=== PATIENT | female | born 1995 | race African-American/Black ===

== ENCOUNTER 2021-03-04 01:57 | Emergency (ER) | payer OTHER, SELFPAY ==
[2021-03-04 01:58] VITALS: BP 149/88; PULSE 82; RESP 16; TEMP 36.7; O2SAT 98
--- NOTE | 2021-03-04 02:22 | ED.WOUNDLAC ---
HPI - Wound/Laceration General Chief Complaint: Wound/Laceration Stated Complaint: need to have an incision checked Source: patient Mode of arrival: EMS Limitations: no limitations History of Present Illness HPI narrative: THis is a 26 year old female who presents for evaluation of a wound check of her csection incision. She had a c section 2-3 weeks ago at [facility]. She states her boyfriend noticed that she has an odor coming from her incision over the past few days. He also told her she had drainage and her incision appeared to be open. She also reports left lower abdominal pain at incision site. She denies nausea, vomiting or fever. She had a video appointment with her OBGYN at 2 week appointment and she was told everything was fine. Related Data Allergies Allergy/AdvReac Type Severity Reaction Status Date / Time No Known Allergies Allergy Verified 03/04/21 02:04 Review of Systems Review of Systems: All systems reviewed & are unremarkable except as noted in HPI and below PMFSH Past Medical History Medical History (Updated 03/04/21 @ 04:36 by Kasia Gallo MD) Patient denies medical problems Surgical History Surgical History (Updated 03/04/21 @ 02:26 by Kasia Gallo MD) H/O section Social History Social History (Updated 03/04/21 @ 02:26 by Kasia Gallo MD) Smoking status: Never smoker Exam Const: General: no acute distress and alert Orientation/consciousness: patient oriented x3 Eyes: EOM: EOMs intact bilaterally Chest: Chest palpation & inspection: normal inspection of the chest Resp: Effort & Inspection: normal respiratory effort and no retractions Auscultation: clear to auscultation bilaterally Cardio: Rate: regular rate Rhythm: regular rhythm Heart sounds: no murmurs GI: GI Palp: Yes Soft to palpation, Yes Tenderness to palpation present (GI) and No Guarding due to palpation present (GI) Auscultation: normal bowel sounds Skin: Other: low transverse incision appears intact with no drainage. mild erythema to right side with TTP left side, it is malodorous, patient with large pannus. no necrosis, no fluctuance Neuro: General: patient oriented x3 and moves all extremities Course Reevaluation(s) Reevaluation #1: I discussed with patient labs show anemia but otherwise unremarkable. She states she is taking iron supplementation. She is no symptomatic. Patient's incision does not have any fluctuance or drainage. I performed bedside ultrasound and no fluid collection seen to suggest abscess It is not particularly red. She does have an odor likely due moist location and poor cleansing. Will start on antibiotics as she has tenderness. She will follow up with her OBGYN Date: 03/04/21 Time: 04:31 Vital Signs Vital signs: Vital Signs Temperature 98.1 F 03/04/21 01:58 Pulse Rate 82 03/04/21 01:58 Respiratory Rate 16 03/04/21 01:58 Blood Pressure 149/88 H 03/04/21 01:58 Pulse Oximetry 98 03/04/21 01:58 Temperature 98.1 F 03/04/21 01:58 Pulse Rate 82 03/04/21 01:58 Respiratory Rate 16 03/04/21 01:58 Blood Pressure 149/88 H 03/04/21 01:58 Pulse Oximetry 98 03/04/21 01:58 MDM - Wound/Laceration Lab Data Attestation: I reviewed the patient's lab results. Result diagrams: 03/04/21 02:15 03/04/21 02:15 Labs: Lab Results 03/04/21 03/04/21 Range/Units 02:15 02:15 WBC 7.0 (4.5-10.0) K/mm3 RBC 4.64 (4.2-5.4) M/mm3 Hgb 8.5 L (12.0-15.0) g/dL Hct 29.8 L (37.0-47.0) % MCV 64.2 L (80-100) fl MCH 18.3 L (26-34) pg MCHC 28.5 L (32-36) g/dl RDW 21.3 H (11.5-14.5) % Plt Count 374 (150-375) k/mm3 MPV 9.9 (7.4-10.4) fl Immature Gran % (Auto) 0.3 (0-0.5) % Neut % (Auto) 54.3 (45.5-73.1) % Lymph % (Auto) 27.5 (18.3-44.2) % [place] % (Auto) 12.0 H (2.6-8.5) % Eos % (Auto) 5.6 H (0-4.4) % Baso % (Auto) 0.3 (0.2-1.2) % Lymph # (Auto) 1
[2021-03-04 02:26] LABS: Basophils Percent Auto 0.3 % (0.2-1.2); Eosinophils Absolute Auto 0.4 K/mm3 (0-0.3); Eosinophils Percent Auto 5.6 % (0-4.4); Hematocrit 29.8 % (37.0-47.0); Hemoglobin 8.5 g/dL (12.0-15.0); Immature Granulocyte Absolute 0.02 K/mm3 (0.00-0.031); Immature Granulocyte Percent A 0.3 % (0-0.5); Immature Platelet Fraction Pct 3.3 % (0.9-11.2); Lymphocytes Absolute Auto 1.93 K/mm3 (0.9-3.2); Lymphocytes Percent Auto 27.5 % (18.3-44.2); Mean Corpuscular HGB Conc 28.5 g/dl (32-36); Mean Corpuscular Hemoglobin 18.3 pg (26-34); Mean Corpuscular Volume 64.2 fl (80-100); Mean Platelet Volume 9.9 fl (7.4-10.4); Monocytes Absolute Auto 0.8 K/mm3 (0.1-0.6); Neutrophils Absolute Auto 3.8 K/mm3 (1.3-6.7); Neutrophils Percent Auto 54.3 % (45.5-73.1); Platelet Count Result 374 k/mm3 (150-375); Red Blood Count 4.64 M/mm3 (4.2-5.4); Red Cell Distribution Width 21.3 % (11.5-14.5)
[2021-03-04 02:36] LABS: Alanine Aminotransferase 15 U/L (4-35); Albumin Level 3.3 g/dL (3.5-5.1); Alkaline Phosphatase 95 U/L (38-126); Anion Gap 7 mmol/L (8-16); Aspartate Amino Transferase 21 U/L (14-36); Bilirubin,Total < 0.1 mg/dL (0.2-1.3); Blood Urea Nitrogen 14 mg/dL (7-17); CRP 1.4 mg/dL (<1.0); Calcium 8.1 mg/dL (8.4-10.2); Carbon Dioxide 25 mmol/L (22-30); Chloride 110 mmol/L (98-107); Estimated CRCL calculation 100 ml/min; Estimated Glomerular Filt Rate > 60; Glucose 95 mg/dL (65-105); Potassium 3.5 mmol/L (3.4-5.0); Sodium 142 mmol/L (137-145)
== END 2021-03-04 04:56 | disposition home or self-care (01) ==
PROVIDERS: Emergency Provider General Practice; PCP Obstetrics & Gynecology
DX: O86.01 Infection of obstetric surgical wound, superficial incisional site (principal)
CPT/HCPCS: 36415; 80053; 85025; 85055; 86140; 99283

== ENCOUNTER 2021-12-05 02:42 | Emergency (ER) | payer OTHER, SELFPAY ==
[2021-12-05 02:43] VITALS: BP 124/88; PULSE 84; RESP 20; TEMP 36.6; O2SAT 98
[2021-12-05] MEDS: SODIUM CHLORIDE 0.9% IV 1,000 ML 999 ML IV CONT (03:39)
[2021-12-05 03:45] LABS: Basophils Percent Auto 0.2 % (0.2-1.2); Eosinophils Absolute Auto 0.1 K/mm3 (0-0.3); Eosinophils Percent Auto 1.3 % (0-4.4); Hematocrit 32.9 % (37.0-47.0); Hemoglobin 10.3 g/dL (12.0-15.0); Immature Granulocyte Absolute 0.04 K/mm3 (0.00-0.031); Immature Granulocyte Percent A 0.4 % (0-0.5); Lymphocytes Absolute Auto 2.27 K/mm3 (0.9-3.2); Lymphocytes Percent Auto 22.1 % (18.3-44.2); Mean Corpuscular HGB Conc 31.3 g/dl (32-36); Mean Corpuscular Hemoglobin 21.3 pg (26-34); Monocytes Percent Auto 9.5 % (2.6-8.5); Neutrophils Absolute Auto 6.8 K/mm3 (1.3-6.7); Neutrophils Percent Auto 66.5 % (45.5-73.1); Platelet Count Result 330 k/mm3 (150-375); Red Blood Count 4.84 M/mm3 (4.2-5.4); Red Cell Distribution Width 18.1 % (11.5-14.5); White Blood Count 10.3 K/mm3 (4.5-10.0)
--- NOTE | 2021-12-05 03:46 | ED.GENADULT ---
HPI - General Adult General Chief complaint: Vaginal Bleeding Stated complaint: urinary s/sx, vag bleeding in Time Seen by Provider: 12/05/21 02:59 History of Present Illness HPI narrative: Patient is a 26-year-old female that presents the emergency department with chief complaint of vaginal spotting. The patient reports that she is approximate 11 weeks on her seventh . The patient reports that she has had a ultrasound performed at a local clinic earlier this month that confirmed that she had a intrauterine the patient states she is unsure of her blood type reports this evening she had a sensation as though she needed to push and then went to the bathroom urinated and then had some slight amount of blood whenever she wiped. The patient reports that she has had no clots that have passed reports that she has not had enough bleeding to saturate or require a pad Related Data Allergies Allergy/AdvReac Type Severity Reaction Status Date / Time No Known Allergies Allergy Verified 03/04/21 02:04 Review of Systems Review of Systems: A 10 system review of systems was completed on the patient and is negative except for what is stated in the HPI. Nursing and ancillary documentation was reviewed. PMFSH Past Medical History Medical History Patient denies medical problems Surgical History Surgical History H/O section Social History Social History Smoking status: Never smoker Exam Narrative: GENERAL: Well-appearing, well-nourished, and in no acute distress. HEAD: Normocephalic, atraumatic. EYES: PERRLA and EOMI. ENT: Nares clear, no rhinorrhea or epistaxis. Mucous membranes moist. NECK: Supple. CHEST: Clear to auscultation. No respiratory distress. HEART: Regular rate and rhythm. No murmur heard. Normal peripheral pulses. ABDOMEN: Soft, nontender, nondistended, normal active bowel sounds. EXTREMITIES: Normal range of motion. No edema. SKIN: Warm, dry, no rash. NEURO: No focal deficits. Alert and oriented x3. PSYCH: Normal mood and affect. Course Vital Signs Vital signs: Vital Signs Temperature 36.6 C 12/05/21 02:43 Pulse Rate 84 12/05/21 02:43 Respiratory Rate 20 12/05/21 02:43 Blood Pressure 124/88 12/05/21 02:43 Pulse Oximetry 98 12/05/21 02:43 Temperature 36.6 C 12/05/21 02:43 Pulse Rate 84 12/05/21 02:43 Respiratory Rate 20 12/05/21 02:43 Blood Pressure 124/88 12/05/21 02:43 Pulse Oximetry 98 12/05/21 02:43 Procedures Other Procedure Procedure 1: Other Procedure: Bedside transabdominal ultrasound confirmed intrauterine with positive cardiac activity. Medical Decision Making Vital Signs Vital Signs: Vital Signs Temperature 36.6 C 12/05/21 02:43 Pulse Rate 84 12/05/21 02:43 Respiratory Rate 20 12/05/21 02:43 Blood Pressure 124/88 12/05/21 02:43 Pulse Oximetry 98 12/05/21 02:43 Temperature 36.6 C 12/05/21 02:43 Pulse Rate 84 12/05/21 02:43 Respiratory Rate 20 12/05/21 02:43 Blood Pressure 124/88 12/05/21 02:43 Pulse Oximetry 98 12/05/21 02:43 Lab Data Result diagrams: 12/05/21 03:35 12/05/21 03:35 Labs: Lab Results 12/05/21 12/05/21 Range/Units 03:35 03:35 WBC Pending RBC Pending Hgb Pending Hct Pending MCV Pending MCH Pending MCHC Pending RDW Pending Plt Count Pending MPV Pending Immature Gran % (Auto) Pending Neut % (Auto) Pending Lymph % (Auto) Pending [place] % (Auto) Pending Eos % (Auto) Pending Baso % (Auto) Pending Lymph # (Auto) Pending [place] # (Auto) Pending Eos # (Auto) Pending Baso # (Auto) Pending Abs Immat Gran (auto) Pending Absolute
[2021-12-05 04:01] LABS: Alanine Aminotransferase 13 U/L (4-35); Albumin Level 3.5 g/dL (3.5-5.1); Alkaline Phosphatase 70 U/L (38-126); Anion Gap 7 mmol/L (8-16); Aspartate Amino Transferase 21 U/L (14-36); Bilirubin,Total < 0.1 mg/dL (0.2-1.3); Blood Urea Nitrogen 8 mg/dL (7-17); Calcium 8.3 mg/dL (8.4-10.2); Carbon Dioxide 21 mmol/L (22-30); Chloride 108 mmol/L (98-107); Estimated CRCL calculation 153 ml/min; Estimated Glomerular Filt Rate > 60; Glucose 108 mg/dL (65-110); Potassium 3.5 mmol/L (3.4-5.0); Sodium 136 mmol/L (137-145)
[2021-12-05 04:18] LABS: Beta HCG Quantitative > 15000.00 mIU/ML
[2021-12-05 04:38] LABS: Add Urine Microscopic? YES; Appearance Urine Cloudy (Clear); Bilirubin Urine Negative (Negative); Blood Urine 3+ (Negative); Color Urine Yellow (Yellow); Glucose Urine UA Negative (Negative); Ketones Urine Negative (Negative); Leukocyte Esterase Ur 3+ LEU/UL (Negative); Mucus Urine Rare /lpf; Nitrate Urine Negative (Negative); Protein Urine 2+ mg/dL (Negative); RBC Urine >75 /hpf (0-2); Specific Grav Ur 1.023 (1.001-1.035); Squamous Epithelial Cell Urine Occasional /hpf (Few); WBC Urine >75 /hpf
[2021-12-05] MEDS: CEPHALEXIN 500 MG CAPSULE PO (05:19)
== END 2021-12-05 05:31 | disposition home or self-care (01) ==
PROVIDERS: Emergency Provider Emergency Medicine
DX: O20.0 Threatened abortion (principal); Z3A.11 11 weeks gestation of pregnancy
CPT/HCPCS: 36415; 80053; 81001; 84702; 85025; 85461; 87077; 87086; 87088; 87186; 87491; 87591; 96360; 99284; A9270; J7030

== ENCOUNTER 2022-03-26 02:06 | Observation (INO) | payer OTHER, SELFPAY ==
[2022-03-26] VITALS (33 sets, daily range): BP systolic 108–119; BP diastolic 66–73; PULSE 75–108; TEMP 36.1; O2SAT 97–100; BMI 40.1
--- NOTE | ~2022-03-26 | US_ITS ---
US OB limited DATE: 03/26/2022 07:33 INDICATION: Patient fell. Check placenta. TECHNIQUE: Real-time imaging and Doppler analysis COMPARISON: None FINDINGS: Live cabrera intrauterine gestation, fetus in breech presentation, longitudinal lie with heart rate of 131 bpm. Anterior placenta, lower margin 1.2 cm above the internal os. No retroplacental hematoma is noted. Subjectively normal amount of amniotic fluid. IMPRESSION: Breech presentation Anterior placenta; no retroplacental hemorrhage is evident Reviewed, dictated and finalized at [facility]. Reviewed, dictated and finalized at [facility].
--- NOTE | ~2022-03-26 | XR_ITS ---
XR ankle LT min 3V DATE: 03/26/2022 08:16 INDICATION: Patient rolled ankle and fell down stairs yesterday. Lateral pain. TECHNIQUE: 4 views of left ankle COMPARISON: None FINDINGS: No fracture or dislocation of the ankle or disruption of the ankle mortise. No periosteal r eaction or bone destruction. IMPRESSION: Negative Reviewed, dictated and finalized at [facility]. IMPRESSION: Negative
[2022-03-26 03:02] LABS: Basophils Percent Auto 0.2 % (0.2-1.2); Eosinophils Percent Auto 0.3 % (0-4.4); Hematocrit 28.3 % (37.0-47.0); Hemoglobin 8.5 g/dL (12.0-15.0); Immature Granulocyte Absolute 0.04 K/mm3 (0.00-0.031); Immature Granulocyte Percent A 0.4 % (0-0.5); Lymphocytes Absolute Auto 1.69 K/mm3 (0.9-3.2); Lymphocytes Percent Auto 15.2 % (18.3-44.2); Mean Corpuscular Hemoglobin 19.9 pg (26-34); Mean Corpuscular Volume 66.1 fl (80-100); Mean Platelet Volume 9.4 fl (7.4-10.4); Monocytes Absolute Auto 0.9 K/mm3 (0.1-0.6); Monocytes Percent Auto 8.1 % (2.6-8.5); Neutrophils Absolute Auto 8.5 K/mm3 (1.3-6.7); Neutrophils Percent Auto 75.8 % (45.5-73.1); Platelet Count Result 278 k/mm3 (150-375); Red Blood Count 4.28 M/mm3 (4.2-5.4); Red Cell Distribution Width 18.2 % (11.5-14.5); White Blood Count 11.1 K/mm3 (4.5-10.0)
[2022-03-26 03:13] LABS: INR 1.1; Prothrombin Time 13.6 Seconds (11.1-14.7)
[2022-03-26 03:14] LABS: Partial Thromboplastin Time 29.9 SECONDS (22.3-36.8)
--- NOTE | 2022-03-26 03:21 | OBADM ---
This patient, Aidee Huston, admitted to the OB room OB Post 117 for observation. Patient/family oriented to hospital policies and general routines including ID bracelet, bed and alarms, visiting hours, pain management, procedures, bathroom and other care routines, personal items, smoking policy, room service/diet, and visiting hours. Patient/Family are encouraged to report perceived risks to care and to ask questions if they do not understand what they are told or what they should do.
[2022-03-26] MEDS: ACETAMINOPHEN 500 MG TABLET 1000 MG PO (03:33)
[2022-03-26 09:27] LABS: Hematocrit 26.6 % (37.0-47.0); Hemoglobin 8.1 g/dL (12.0-15.0)
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
[2022-03-26 11:32] LABS: Amphetamine Screen Urine Negative (Negative); Barbiturate Screen Urine Negative (Negative); Benzodiazepines Screen Urine Negative (Negative); Cannabinoid Screen Urine Negative (Negative); Cocaine Screen Urine Negative (Negative); Methadone Screen Urine Negative (Negative); Opiate Screen Urine Negative (Negative); Phencyclidine Screen Urine Negative (Negative)
--- NOTE | 2022-04-22 10:44 | P.PNOB_ITS ---
OB - Triage/Final Diagnosis Visit Information Date of evaluation: 03/26/22 Comments/Additional reasons for admission: I have assessed the risk for this patient, Aidee Huston, and determined that she would benefit from observation care. Evaluation Laboratory results: Laboratory Tests 03/26/22 03/26/22 03/26/22 02:55 02:55 02:55 WBC 11.1 H RBC 4.28 Hgb 8.5 L Hct 28.3 L MCV 66.1 L MCH 19.9 L MCHC 30.0 L RDW 18.2 H Plt Count 278 MPV 9.4 Immature Gran % (Auto) 0.4 Neut % (Auto) 75.8 H Lymph % (Auto) 15.2 L [place] % (Auto) 8.1 Eos % (Auto) 0.3 Baso % (Auto) 0.2 Lymph # (Auto) 1.69 [place] # (Auto) 0.9 H Eos # (Auto) 0.0 Baso # (Auto) 0.0 Abs Immat Gran (auto) 0.04 H Absolute Neuts (auto) 8.5 H Absolute Nucleated RBC 0.0 Nucleated RBC % 0.0 PT 13.6 INR 1.1 APTT 29.9 Urine Opiates Screen Urine Methadone Screen Ur Barbiturates Screen Ur Phencyclidine Scrn Ur Amphetamine Screen U Benzodiazepines Scrn Urine Cocaine Screen U Cannabinoids Screen KB Hemoglobin Negative 03/26/22 03/26/22 09:17 10:51 WBC RBC Hgb 8.1 L Hct 26.6 L MCV MCH MCHC RDW Plt Count MPV Immature Gran % (Auto) Neut % (Auto) Lymph % (Auto) [place] % (Auto) Eos % (Auto) Baso % (Auto) Lymph # (Auto) [place] # (Auto) Eos # (Auto) Baso # (Auto) Abs Immat Gran (auto) Absolute Neuts (auto) Absolute Nucleated RBC Nucleated RBC % PT INR APTT Urine Opiates Screen Negative Urine Methadone Screen Negative Ur Barbiturates Screen Negative Ur Phencyclidine Scrn Negative Ur Amphetamine Screen Negative U Benzodiazepines Scrn Negative Urine Cocaine Screen Negative U Cannabinoids Screen Negative KB Hemoglobin Final Diagnosis (1) Status post fall: Code(s): Z91.81 - History of falling Status: Acute
== END 2022-03-26 10:48 | disposition home or self-care (01) ==
PROVIDERS: Admitting Provider Obstetrics & Gynecology; Visit Provider Obstetrics & Gynecology
DX: Z04.3 Encounter for examination and observation following other accident (principal); O26.892 Other specified pregnancy related conditions, second trimester; Z3A.26 26 weeks gestation of pregnancy
CPT/HCPCS: 36415; 73610; 76815; 80307; 85014; 85018; 85025; 85460; 85610; 85730; A9270; G0378; G0379

== ENCOUNTER 2024-07-24 21:41 | Observation (INO) | payer SELFPAY ==
[2024-07-24 22:39] LABS: Add Urine Microscopic? YES; Appearance Urine Cloudy (Clear); Bacteria Urine 4+ /hpf; Bilirubin Urine Negative (Negative); Blood Urine Negative (Negative); Color Urine Dark Yellow (Yellow); Glucose Urine UA Negative (Negative); Ketones Urine 1+ mg/dL (Negative); Leukocyte Esterase Ur 1+ LEU/UL (Negative); Mucus Urine Present /lpf; Need Manual Microscopic Reviewed; Nitrate Urine Negative (Negative); Protein Urine Trace mg/dL (Negative); RBC Urine 0-2 /hpf (0-2); Specific Grav Ur 1.026 (1.001-1.035); Squamous Epithelial Cell Urine Moderate /hpf (Few); pH Urine 6.5 (5.0-9.0)
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
[2024-07-24 22:54] LABS: Amphetamine Screen Urine Negative (Negative); Barbiturate Screen Urine Negative (Negative); Benzodiazepines Screen Urine Negative (Negative); Cannabinoid Screen Urine Negative (Negative); Cocaine Screen Urine Negative (Negative); Methadone Screen Urine Negative (Negative); Opiate Screen Urine Negative (Negative); Phencyclidine Screen Urine Negative (Negative)
[2024-07-24 22:56] VITALS: BMI 38.5
[2024-07-24] MEDS: ACETAMINOPHEN 500 MG TABLET 1000 MG PO (22:57)
--- NOTE | 2024-07-24 23:44 | OBADM ---
This patient, Aidee Huston, admitted to the OB room Labor/Delivery/Recovery 106 for observation. Patient/family oriented to hospital policies and general routines including ID bracelet, bed and alarms, visiting hours, pain management, procedures, bathroom and other care routines, personal items, smoking policy, room service/diet, and visiting hours. Patient/Family are encouraged to report perceived risks to care and to ask questions if they do not understand what they are told or what they should do.
--- NOTE | 2024-07-29 07:57 | P.PNOB_ITS ---
OB - Triage/Final Diagnosis Visit Information Date of evaluation: 07/24/24 Reason for evaluation: other (leakage of fluid) Comments/Additional reasons for admission: I have assessed the risk for this patient, Aidee Huston, and determined that she would benefit from observation care. Evaluation Laboratory results: Laboratory Tests 07/24/24 22:19 Urine Color Dark yellow Urine Appearance Cloudy H Urine pH 6.5 Ur Specific [place] 1.026 Urine Protein Trace Urine Glucose (UA) Negative Urine Ketones 1+ H Ur Blood (Man) Negative Urine Nitrate Negative Urine Bilirubin Negative Urine Urobilinogen 1.0 Add Ur Microanalysis Reviewed Leukocyte Esterase Rfl 1+ H Urine RBC 0-2 Urine WBC 11-20 H Ur Squamous Epith Cells Moderate Urine Bacteria 4+ H Urine Casts 3-5 Urine Mucus Present Urine Opiates Screen Negative Urine Methadone Screen Negative Ur Barbiturates Screen Negative Ur Phencyclidine Scrn Negative Ur Amphetamine Screen Negative U Benzodiazepines Scrn Negative Urine Cocaine Screen Negative U Cannabinoids Screen Negative
== END 2024-07-25 00:48 | disposition home or self-care (01) ==
PROVIDERS: Admitting Provider Student in an Organized Health Care Education/Training Program; Visit Provider Student in an Organized Health Care Education/Training Program
DX: O42.912 Preterm premature rupture of membranes, unspecified as to length of time between rupture and onset of labor, second trimester (principal); Z3A.24 24 weeks gestation of pregnancy
CPT/HCPCS: 80307; 81001; 87086; 87088; A9270; G0378; G0379

== ENCOUNTER 2024-09-05 19:14 | Observation (INO) | payer OTHER, SELFPAY ==
[2024-09-05] VITALS (9 sets, daily range): BP systolic 118; BP diastolic 86; PULSE 90–113; O2SAT 98–100
--- NOTE | 2024-09-05 20:40 | PC.NURSE ---
RN went into room to draw labs. Pt stated she wants to leave AMA so she can picker and packer her kids. RN asked pt if she could stay long enough for labwork to be drawn. Pt stated she could not wait. Charge nurse Uyen Rivas RN notified.
--- NOTE | 2024-09-05 20:45 | PC.NURSE ---
2044- RN contacted quality assurance supervisor trim and relayed pts wishes to leave AMA.
--- NOTE | 2024-09-05 20:45 | PC.NURSE ---
Pt refusing to have labs drawn and requesting to sign out AMA. Discussed at length with patient about necessity for lab work with regards to safety at time of delivery with necessary. Pt states, I have to get my kids. Informed that it will take <5 minutes to draw blood and she doesn't have to wait for results. Pt conts to refuse observation and lab work. Informed pt that she was putting herself and the baby at risk for problems including . Instructed pt to call office of Dr Matthews to schedule follow up appointment and she agrees to do so. She continues to refuse lab work or continued observation and states, I know when to come back. Pt signed AMA form and immediately exited the room.
[2024-09-05 21:00] LABS: Add Urine Microscopic? YES; Appearance Urine Clear (Clear); Bacteria Urine None Seen /hpf; Bilirubin Urine Negative (Negative); Blood Urine Negative (Negative); Color Urine Yellow (Yellow); Glucose Urine UA Negative (Negative); Ketones Urine 1+ mg/dL (Negative); Leukocyte Esterase Ur 1+ LEU/UL (Negative); Nitrate Urine Negative (Negative); Non Pathogenic Casts 0-2; Protein Urine 1+ mg/dL (Negative); RBC Urine 0-2 /hpf (0-2); Specific Grav Ur 1.028 (1.001-1.035); Squamous Epithelial Cell Urine None Seen /hpf (Few); pH Urine 6.5 (5.0-9.0)
[2024-09-05 21:13] LABS: Amphetamine Screen Urine Negative (Negative); Barbiturate Screen Urine Negative (Negative); Benzodiazepines Screen Urine Negative (Negative); Cannabinoid Screen Urine Negative (Negative); Cocaine Screen Urine Negative (Negative); Methadone Screen Urine Negative (Negative); Opiate Screen Urine Negative (Negative); Phencyclidine Screen Urine Negative (Negative)
--- NOTE | 2024-09-05 21:26 | PC.NURSE ---
DCFS notified of pt's presentation to hospital and refusal of care with AMA discharge. Intake # [id number]
--- NOTE | 2024-10-02 07:53 | PM.IMHP ---
H&P: HPI History of Present Illness Date/Time: 10/02/24 07:53 Chief Complaint: loss of fluid Narrative: 29-year-old female who presented to Labor and delivery with /loss of fluid. Membranes were intact. Attempted to draw labs. Patient has no care and is near term. Patient refused and left against medical advice. PMF Past Medical History Medical History Patient denies medical problems Surgical History Surgical History H/O section Social History Social History (System 12/07/21 @ 11:30 by Telly Adame) Smoking status: Never smoker Meds Home Medications and Allergies Home Medications Medication Instructions Recorded Confirmed Type ferrous sulfate 325 mg (65 mg 325 mg PO BID #14 tabs 03/04/21 Rx iron) tablet Allergies Allergy/AdvReac Type Severity Reaction Status Date / Time No Known Allergies Allergy Verified 07/24/24 23:46 Assessment and Plan Assessment and plan (1) Vaginal discharge during in third trimester: Code(s): O26.893 - Other specified related conditions, third trimester; N89.8 - Other specified noninflammatory disorders of vagina Status: Acute Assessment and Plan: 29-year-old female who presented to Labor and delivery with /loss of fluid. Membranes were intact. Attempted to draw labs. Patient has no care and is near term. Patient refused and left against medical advice.
== END 2024-09-05 20:50 | disposition left against medical advice (07) ==
PROVIDERS: Admitting Provider Obstetrics & Gynecology; Visit Provider Obstetrics & Gynecology
DX: O26.893 Other specified pregnancy related conditions, third trimester (principal); N89.8 Other specified noninflammatory disorders of vagina; O09.33 Supervision of pregnancy with insufficient antenatal care, third trimester; Z3A.00 Weeks of gestation of pregnancy not specified
CPT/HCPCS: 80307; 81001; 87086; G0378; G0379